=== PATIENT | male | born 1980 | race Caucasian/White ===

== ENCOUNTER 2016-11-15 17:30 | Emergency (ER) | payer OTHER ==
[~2016-11-15] VITALS: Ht 175.3 cm; Wt 164.0 kg
[~2016-11-15 17:30] MED LIST: CIPR-255 PO
[2016-11-15 17:34] VITALS: TEMP 37; Ht 175.3 cm; Wt 164.0 kg
[2016-11-15] MEDS ORDERED: XYLOCAINE 1%/SOD BICARB 20 ML VIAL INFIL ONE (17:40)
[2016-11-15] MEDS ORDERED: BUPIVACAINE 0.5 % 5 MG/1 ML MPF 30ML VIAL INFIL ONE (18:00)
[2016-11-15] MEDS ORDERED: CEPHALEXIN MONOHYDRATE 250 MG CAP PO ONE (18:00)
--- NOTE | 2016-11-15 18:40 | DIAGNOSTIC IMAGING REPORT ---
LEFT SECOND FINGER 3 VIEWS HISTORY: LEFT 2ND, PUNCTURE WOUND COMPARISON: None. FINDINGS: There is no fracture or dislocation. Diffuse soft tissue swelling within the left second finger. Small laceration at the mid left second finger. No radiopaque foreign bodies. IMPRESSION: No fractures. Soft tissue swelling and a small laceration. Electronically signed by: Tremaine Leger M.D. 11/15/2016 6:38 PM Dictated Date/Time: 11/15/2016 6:37 PM
[2016-11-15] MEDS ORDERED: CEPH500C2 PO (19:19)
--- NOTE | 2016-11-15 19:20 | EMERGENCY ROOM VISIT NOTE ---
ED Visit Note First contact with patient: 17:48 CHIEF COMPLAINT: Puncture wound of the left second finger HISTORY OF PRESENT ILLNESS: Patient is a [id number] 36-year-old white male who presents to emergency department for evaluation of a puncture wound to the left second finger. He was using a drill, when it skipped off the piece he was working on, puncturing his hand. He notes puncture wound on the palm of the left second finger, at the MCP crease, and an exit wound on the ulnar aspect of the second finger, over the middle phalanx. He cleansed the area with rubbing alcohol. Bleeding was controlled. He did not take any medication for pain. Rates his discomfort a 6/10. He denies any numbness or weakness. He notes pain with flexion. He reports that his tetanus is current. REVIEW OF SYSTEMS: Review of systems as per HPI. All other systems reviewed were negative. At least 6 systems reviewed. PMH: Electronic medical records are reviewed and summarized as above/below. See Problem List. Patient believes that his tetanus was in the last 8 years. SOCIAL HISTORY: Patient lives at home. Employed. Nonsmoker. PHYSICAL EXAM: Vital Signs: Reviewed Nurse's notes. CONSTITUTIONAL: Patient is an obese 36-year-old white male who is awake and alert and in no acute distress. INTEGUMENTARY: The patient has 2 puncture wounds noted on the palmar aspect of the left second finger, 1 proximal and one distal to the MCP crease. There is another puncture wound on the ulnar aspect of the finger over the middle phalanx. The finger is circumferentially swollen, slightly tender to palpation. Finger Be passively and actively extend it fully without pain. He has discomfort with attempts at full flexion but is able to flex against resistance one isolated at the MCP and PIP and the DIP joints. No foreign material is seen in the wounds. EMERGENCY DEPARTMENT COURSE: X-rays of the left second finger were obtained and were negative for acute fracture or bony abnormality. No gross foreign body. Patient was medicated with Keflex 500 mg orally. Using sterile technique, the finger was prepped with Betadine and a digital block using a 2:1 mixture of 1% plain buffered lidocaine and 0.5% Sensorcaine was performed. When adequate anesthesia was attained, the epidermal layer of the puncture wounds was debrided off. The finger was again scrubbed thoroughly with Betadine and puncture wounds were irrigated copiously using normal saline solution. An 18- gauge Angiocath was also threaded through the wound and irrigated along the puncture tract. 250 mL of saline was used. Patient tolerated the procedure well. Bulky dressing was applied. Patient was instructed on the worrisome signs or symptoms for which she should return to the emergency department. He does not have any evidence for fracture or tendon disruption at this time. LEFT SECOND FINGER 3 VIEWS HISTORY: LEFT 2ND, PUNCTURE WOUND COMPARISON: None. FINDINGS: There is no fracture or dislocation. Diffuse soft tissue swelling within the left second finger. Small laceration at the mid left second finger. No radiopaque foreign bodies. IMPRESSION: No fractures. Soft tissue swelling and a small laceration. Problem List Medical Problems: (1) Acute urinary retention Status: Resolved (2) Complication, blocked Tipton catheter Status: Resolved (3) Foreign body of left cornea Status: Resolved (4) Hypertension Nos Status: Chronic (5) Urethral stricture Status: Chronic (6) Urinary retention Status: Resolved Current/Historical Medications Scheduled Cephalexin Monohydrate (Keflex), 500 MG PO TID Allergies Coded Allergies: No Known Allergies (Unverified , 11/15/16) Vital Signs Date Time Temp Pulse Resp B/P (MAP) Pulse Ox O2 Delivery O2 Flow Rate FiO2 11/15/16 19:25 91 18 126/63 97 11/15/16 17:34 37.0 88 18 120/56 98 Room Air Medications Administered Medications (Trade) Dose Ordered Sig/Mariann Route Start Time Stop Time Status Last Admin Dose Admin Bupivacaine HCl (Marcaine 0.5% MPF Inj) 30 ml NOW ONCE INFIL 11/15/16 18:00 11/15/16 18:02 DC 11/15/16 18:00 30 ML Cephalexin Monohydrate (Keflex Cap) 500 mg NOW ONCE PO 11/15/16 18:00 11/15/16 18:02 DC 11/15/16 18:00 500 MG Departure Information Impression Primary Impression: Puncture wound of finger of left hand Prescriptions Cephalexin Monohydrate (KEFLEX) 500 Mg Cap 500 MG PO TID, #15 CAP Prov: Lakesha Bhatia PA 11/15/16 Referrals Jackie Hammond DO (PCP) Patient Instructions [facility] Additional Instructions Cephalexin(Keflex) 500mg: Take one pill 3 times daily for 5 days to prevent infection. All antibiotics can cause diarrhea. If this occurs and you feel worse or it does not resolve in 1-2 days follow up with your doctor or return to the Emergency Department as this could be signs of serious underlying problems. Any medication can cause an allergic reaction, stop the pills immediately and return to the ER for rash, hives, breathing difficulties, or swelling. Ibuprofen(Motrin, Advil) may be used for fever or pain. Use 600mg every six hours as needed. Take with food. Avoid using more than 2400mg in a 24 hour period. Do not use 2400mg per day for more than three consecutive days without physician direction. Prolonged inappropriate use can lead to stomach upset or ulcers. (AND/OR) Acetaminophen(Tylenol) may be used for fever or pain. Use 1000mg every six hours as needed. Avoid using more than 3000mg in a 24 hour period. Clean wounds daily, cover with an antibiotic ointment and keep covered until it heals. Return for any signs of infection (increasing redness, swelling, drainage). Ice and elevate for swelling and pain.
[2016-11-15 19:25] VITALS: BP 126/63; PULSE 91; O2SAT 97
== END 2016-11-15 19:26 | disposition home or self-care (01) ==
LOC: C.EDB 17:31 → C.EDD 19:26
DX: S61.231A Puncture wound without foreign body of left index finger without damage to nail, initial encounter (principal); W29.8XXA Contact with other powered hand tools and household machinery, initial encounter; I10 Essential (primary) hypertension

== ENCOUNTER 2017-01-14 19:10 | Emergency (ER) | payer OTHER ==
[~2017-01-14] VITALS: Ht 172.7 cm; Wt 165.7 kg
[~2017-01-14 19:10] MED LIST changes: +CEPH500C2 PO; -CIPR-255 PO
[2017-01-14 19:15] VITALS: TEMP 37; Ht 172.7 cm; Wt 165.7 kg
--- NOTE | 2017-01-14 20:09 | DIAGNOSTIC IMAGING REPORT ---
RIGHT HEEL MIN 2 VIEWS CLINICAL HISTORY: right heel injury Right trauma. Pain. COMPARISON: None. DISCUSSION: The bones and joint spaces appear intact. There is no evidence of fracture, dislocation or bony disease. There is no evidence for soft tissue swelling. Small heel spur IMPRESSION: Small heel spur. Otherwise negative study The above report was generated using voice recognition software. It may contain grammatical, syntax or spelling errors. Electronically signed by: Brant Gilmore M.D. 01/14/2017 8:08 PM Dictated Date/Time: 01/14/2017 8:07 PM
--- NOTE | 2017-01-14 20:13 | EMERGENCY ROOM VISIT NOTE ---
ED Visit Note First contact with patient: 19:17 CHIEF COMPLAINT: Right heel injury HISTORY of present illness: This 36-year-old male patient sustained an injury to the right heel today when he was stepping out of a truck and fell injuring his right heel. The patient complains of pain with weightbearing. He denies any ankle pain . REVIEW OF SYSTEMS: 6 system review was performed and was negative unless stated otherwise in history of present illness. PMH: The patient is healthy; hypertension SOCIAL HISTORY: Patient lives with his . Patient denies any tobacco or alcohol use. PHYSICAL EXAM: Vital Signs: Were reviewed Reviewed Nurse's notes. GENERAL: 36- year-old male appears in no acute distress. MENTAL STATUS: Alert and oriented 3 RIGHT FOOT: No gross bony deformity noted. No erythema or edema noted. The patient is tender to palpation over both the plantar aspect of the calcaneus as well as the lateral and medial aspect. The remainder of the foot is nontender to palpation. EMERGENCY DEPARTMENT COURSE: The patient was evaluated. The patient was offered pain medication but declined. X-ray of the right heel was ordered interpreted by the radiologist and myself. DIAGNOSTICS:RIGHT HEEL MIN 2 VIEWS CLINICAL HISTORY: right heel injury Right trauma. Pain. COMPARISON: None. DISCUSSION: The bones and joint spaces appear intact. There is no evidence of fracture, dislocation or bony disease. There is no evidence for soft tissue swelling. Small heel spur IMPRESSION: Small heel spur. Otherwise negative study The above report was generated using voice recognition software. It may contain grammatical, syntax or spelling errors. Electronically signed by: Brant Gilmore M.D. 01/14/2017 8:08 PM The patient was informed of the findings. The patient was discharged home in stable condition. TREATMENT: Ibuprofen 600 mg every 6 hours with food for pain. Ice intermittently to the affected area over the next 24 hours. If symptoms are not improving in 3-4 days, follow-up with your family doctor. DIAGNOSIS: Right heel contusion Problem List Medical Problems: (1) Acute urinary retention Status: Resolved (2) Complication, blocked Tipton catheter Status: Resolved (3) Foreign body of left cornea Status: Resolved (4) Hypertension Nos Status: Chronic (5) Urethral stricture Status: Chronic (6) Urinary retention Status: Resolved Current/Historical Medications No Active Prescriptions or Reported Meds Allergies Coded Allergies: No Known Allergies (Unverified , 11/15/16) Vital Signs Date Time Temp Pulse Resp B/P (MAP) Pulse Ox O2 Delivery O2 Flow Rate FiO2 01/14/17 19:15 37.0 78 16 136/89 94 Room Air Departure Information Prescriptions No Active Prescriptions or Reported Meds Referrals No Doctor, Assigned (PCP) Patient Instructions [facility]
[2017-01-14 20:20] VITALS: BP 120/88; PULSE 78; O2SAT 94
== END 2017-01-14 20:20 | disposition home or self-care (01) ==
LOC: C.EDB 19:11 → C.EDD 20:20
DX: S90.31XA Contusion of right foot, initial encounter (principal); V68.4XXA Person boarding or alighting a heavy transport vehicle injured in noncollision transport accident, initial encounter; I10 Essential (primary) hypertension